=== PATIENT | female | born 1985 | race African-American/Black ===

== ENCOUNTER 2023-04-25 08:15 | Inpatient (IN) | payer OTHER ==
[2023-04-25] MEDS ORDERED: CITRIC ACID/SODIUM CITRATE 30 ML UNIT-DOSE CUP PO ONE (09:18)
[2023-04-25] MEDS ORDERED: ELECTROLYTE-148 SOLN 1,000 ML IV SCH (09:30)
[2023-04-25] MEDS ORDERED: FENTANYL CITRATE/PF 50 MCG/ML VIAL ONE (10:21)
[2023-04-25] MEDS ORDERED: morphine SULFATE/PF 1 MG/2 ML (2cc Syringe - QUVA) ONE (10:21)
[2023-04-25] MEDS ORDERED: DEXAMETHASONE SOD PHOSPHATE 4 MG/1 ML VIAL ONE (10:35)
[2023-04-25] MEDS ORDERED: ONDANSETRON 4 MG/2 ML VIAL ONE (10:35)
[2023-04-25] MEDS ORDERED: ePHEDrine SULFATE 50 MG/1 ML AMPULE ONE (10:37)
[2023-04-25] MEDS ORDERED: PHENYLEPHRINE HCL 10 MG/1 ML SINGLE DOSE VIAL ONE (10:39)
[2023-04-25] MEDS ORDERED: PROPOFOL 20 ML ONE (11:16)
[2023-04-25] MEDS ORDERED: OXYTOCIN 10 UNITS/ML VIAL ONE ×2 (11:46)
[2023-04-25 11:52] LABS: CORD BASE EXCESS -2.2 mmol/L (0-2); CORD HCO3 24.9 mmHg (20-29); CORD PCO2 52.2 mmHg (30-78); CORD pH 7.297 (7.14-7.44)
[2023-04-25 11:53] LABS: CORD BASE EXCESS -3.3 mmol/L (0-2); CORD HCO3 21.8 mmHg (20-29); CORD PCO2 39.8 mmHg (30-78); CORD pH 7.357 (7.14-7.44)
[2023-04-25 13:16] VITALS: RESP 18
[2023-04-25] MEDS ORDERED: OXYTOCIN 20 UNITS in 0.9% NS 20 UNIT/1,000 ML INFUS.BAG IV ONE (13:30)
[2023-04-25] MEDS ORDERED: METHYLERGONOVINE MALEATE 0.2 MG/1 ML AMP IM PRN (15:37)
[2023-04-25] MEDS ORDERED: ACETAMINOPHEN 325 MG TABLET (FP) PO PRN (15:37)
[2023-04-25] MEDS ORDERED: OXYTOCIN 20 UNITS in 0.9% NS 20 UNIT/1,000 ML INFUS.BAG IV SCH (15:45)
[2023-04-25] MEDS: CEFAZOLIN 1 GM in DEXTROSE 5%-WATER - 50 ML IVPB SCH (17:56)
[2023-04-26] MEDS: SIMETHICONE 80 MG TAB.CHEW (FP) PO PRN ×3 (02:07→16:52)
[2023-04-26] MEDS: CEFAZOLIN 1 GM in DEXTROSE 5%-WATER - 50 ML IVPB SCH ×2 (02:07→10:08)
[2023-04-26] MEDS ORDERED: oxyCODONE HCL 5 MG TABLET PO PRN (03:37)
[2023-04-26] MEDS: IBUPROFEN 600 MG TABLET (FP) PO PRN ×3 (05:42→22:07)
[2023-04-26] MEDS: ENOXAPARIN NA (PORCINE) 40 MG/0.4 ML DISP.SYRIN SQ SCH (10:08)
[2023-04-26 10:38] LABS: BASO % 0.3 % (0-2.0); EOS % 0.1 % (0-4.5); HEMATOCRIT 31.8 % (32.4-45.2); HEMOGLOBIN 10.5 GM/dL (10.7-15.3); LYMPH % 17.2 % (8-40); MCH 28.6 pg (25.7-33.7); MEAN CELL VOLUME 86.7 fl (80-96); MEAN PLT VOLUME 9.7 fl (7.5-11.1); MONO % 6.3 % (3.8-10.2); NEUT % 76.1 % (42.8-82.8); PLATELET COUNT 254 10^3/uL (134-434); RBC 3.67 M/mm3 (3.60-5.2); RDW 14.9 % (11.6-15.6)
[2023-04-26] MEDS ORDERED: BISACODYL 10 MG SUPP.RECT RC PRN (15:37)
[2023-04-27] MEDS: IBUPROFEN 600 MG TABLET (FP) PO PRN ×2 (09:53→17:35)
[2023-04-27] MEDS: ENOXAPARIN NA (PORCINE) 40 MG/0.4 ML DISP.SYRIN SQ SCH (09:54)
[2023-04-28] MEDS: IBUPROFEN 600 MG TABLET (FP) PO PRN ×2 (06:05→09:31)
[2023-04-28] MEDS: SIMETHICONE 80 MG TAB.CHEW (FP) PO PRN (06:05)
[2023-04-28 06:34] LABS: BASO % 0.4 % (0-2.0); EOS % 2.2 % (0-4.5); HEMATOCRIT 27.3 % (32.4-45.2); HEMOGLOBIN 9.3 GM/dL (10.7-15.3); LYMPH % 24.8 % (8-40); MCH 29.4 pg (25.7-33.7); MCHC 33.9 g/dl (32.0-36.0); MEAN CELL VOLUME 86.7 fl (80-96); MEAN PLT VOLUME 8.7 fl (7.5-11.1); MONO % 7.1 % (3.8-10.2); NEUT % 65.5 % (42.8-82.8); PLATELET COUNT 274 10^3/uL (134-434); RBC 3.15 M/mm3 (3.60-5.2); WHITE BLOOD COUNT 10.1 K/mm3 (4.0-10.0)
[2023-04-28] MEDS: ENOXAPARIN NA (PORCINE) 40 MG/0.4 ML DISP.SYRIN SQ SCH (09:31)
[2023-04-28 10:16] VITALS: BP 122/61; PULSE 84; TEMP 98.3
== END 2023-04-28 12:50 | disposition home or self-care (01) | DRG 833 ==
LOC: JLDR 08:15 → J3W 13:40
PROVIDERS: ADMIT Obstetrics & Gynecology; ATTEND Obstetrics & Gynecology
DX: O34.211 Maternal care for low transverse scar from previous cesarean delivery (principal); Z87.59 Personal history of other complications of pregnancy, childbirth and the puerperium; Z3A.39 39 weeks gestation of pregnancy; Z37.0 Single live birth
CPT/HCPCS: 36415; 36600; 82803; 85025; 88307-TC; 94010